=== PATIENT | male | born 2000 | race Two or more races ===

== ENCOUNTER 2022-11-25 02:33 | Emergency (ER) | payer BC ==
[~2022-11-25] VITALS: Ht 162.6 cm; Wt 45.4 kg
[2022-11-25 05:15] VITALS: BP 121/57; TEMP 98; O2SAT 100
== END 2022-11-25 05:16 | disposition home or self-care (01) ==
LOC: EDSEX 02:35 → ER 02:35
DX: M79.641 Pain in right hand (principal); J45.909 Unspecified asthma, uncomplicated; W22.8XXA Striking against or struck by other objects, initial encounter; Y93.89 Activity, other specified; Y92.89 Other specified places as the place of occurrence of the external cause; Y99.8 Other external cause status
CPT/HCPCS: 73130-TC